=== PATIENT | male | born 1965 | race Asian ===

== ENCOUNTER → 2017-01-06 | Outpatient (CLI) | payer MEDICARE, OTHER ==
[~2017-01-06] MED LIST: DIAZ5TAB4 PO; OMEP20TA42 PO
--- NOTE | 2017-01-06 13:15 | RADRPT ---
Echocardiogram Report Patient Name: NIKO CROOKS Gender: Male Date: 1965 Study Date: 06-Jan-2017 Saddle Maker: Sun Luevano RDCS Location: EKG Ref. Physician: MARIO SCHMITZ Quality: Technically Difficult Study Procedures: Transthoracic echocardiogram with complete 2D, M-Mode, and doppler examination. Indications: Hypertension. 2D/M Mode Doppler Measurement Value Normal Ranges Measurement Value Normal Ranges LVIDd 2D 3.1 3.5 - 5.6 cm AV Peak Luis 1.0 m/sec LVIDs 2D 2.0 2.1 - 4.1 cm AV Peak PG 4.0 mmHg FS 2D 36.4 % LVOT Peak Luis 0.8 m/sec LVPWd 2D 0.9 0.6 - 1.1 cm LVOT Peak PG 3.0 mmHg IVSd 2D 0.9 0.6 - 1.1 cm MV E Peak Luis 0.6 m/sec IVS/LVPW 2D 1.0 MV A Peak Luis 0.9 m/sec AoR Diam 2D 2.6 2.0 - 3.7 cm MV E/A 0.7 LA/Ao 2D 1 0 - 1 MV Decel Time 137 msec EDV 2D 30.7 cm3 MV E/A 0.7 ESV 2D 7.9 cm3 LA Dimen 2D 1.9 2.3 - 4.0 cm Findings Left Ventricle: Normal left ventricular systolic function. Normal left ventricular cavity size. Normal left ventricular wall thickness. Ejection fraction is visually estimated at 5560 %. Tissue Doppler/Mitral Doppler indices are consistent with impaired relaxation (Stage I diastolic dysfunction). Right Ventricle: Normal right ventricular size. Normal right ventricular systolic function. Left Atrium: The left atrium is normal in size. Right Atrium: The right atrium is normal in size. Mitral Valve: Normal appearance and function of the mitral valve with trace physiologic regurgitation. Aortic Valve: Normal appearance of the aortic valve. No significant aortic stenosis or insufficiency. Tricuspid Valve: Normal appearance of the tricuspid valve. Unable to obtain RVSP due to minimal presence of tricuspid regurgitation. Pulmonic Valve: Normal pulmonic valve appearance. There is trace pulmonic regurgitation. Pericardium: Normal pericardium with no significant pericardial effusion. Aorta: Normal aortic root. IVC: The IVC is not well visualized. Conclusions 1.Technically challenging study. 2.The left ventricle is normal in size and systolic function. 3.Estimate left ventricular ejection fraction of 55-60%. 4.Grade 1 diastolic dysfunction. Electronically Signed By: Mario Schmitz 06-Jan-2017 13:14:12 -0700 Patient Name: NIKO CROOKS Study Date: 06-Jan-2017 [id number]
== END | disposition home or self-care (01) ==
LOC: EKG 10:05
PROVIDERS: ATTEND Internal Medicine
DX: I10 Essential (primary) hypertension (principal)
CPT/HCPCS: 93306